=== PATIENT | female | born 1945 | race African-American/Black ===

== ENCOUNTER 2017-04-11 11:19 | Emergency (ER) | payer MEDICARE, OTHER ==
[~2017-04-11] VITALS: Ht 180.3 cm; Wt 90.0 kg
[~2017-04-11 11:19] MED LIST: ASPIRIN EC81 MG PO; CARVEDILOL6.25 MG PO; COMBIVENT IN; DULERA1 AE1 IN; DUONEB IN; FLOVENT HFA44 MCG IN; HYDROMET1 M1 OR; PREDNISONE10 MG PO; STERAPRED DS10 MG; TESSALON200 MG PO; ZITHROMAX500 MG PO
[2017-04-11] MEDS ORDERED: DOXYCYC MONO100 M2 PO (11:32)
[2017-04-11 11:49] VITALS: BP 162/89
== END 2017-04-11 11:49 | disposition home or self-care (01) ==
LOC: ED 11:19
DX: J06.9 Acute upper respiratory infection, unspecified (principal); R05 Cough; R09.89 Other specified symptoms and signs involving the circulatory and respiratory systems; Z95.810 Presence of automatic (implantable) cardiac defibrillator

== ENCOUNTER 2023-03-18 10:07 | Emergency (ER) | payer OTHER, MEDICARE ==
[~2023-03-18] VITALS: Ht 180.3 cm; Wt 81.8 kg
[~2023-03-18 10:07] MED LIST changes: +DOXYCYC MONO100 M2 PO
[2023-03-18 10:21] VITALS: BP 173/99
[2023-03-18 10:30] VITALS: BP 162/90
[2023-03-18 10:46] VITALS: BP 138/75
[2023-03-18 11:00] VITALS: BP 138/79
[2023-03-18 11:15] VITALS: BP 146/79
[2023-03-18] MEDS ORDERED: METHOCARBAMOL500 MG PO ×2 (12:38→12:46)
[2023-03-18] MEDS ORDERED: NAPROXEN500 MG PO ×2 (12:38→12:46)
[2023-03-18 12:40] VITALS: BP 138/79
== END 2023-03-18 12:47 | disposition home or self-care (01) | DRG 552 ==
LOC: ED 10:07
DX: S16.1XXA Strain of muscle, fascia and tendon at neck level, initial encounter (principal); V43.52XA Car driver injured in collision with other type car in traffic accident, initial encounter; Y92.481 Parking lot as the place of occurrence of the external cause